=== PATIENT | male | born 1980 | race Caucasian/White ===

== ENCOUNTER 2017-01-02 20:09 | Emergency (ER) | payer MEDICARE, OTHER ==
[~2017-01-02] VITALS: Ht 170.2 cm; Wt 68.0 kg
[2017-01-02 20:30] VITALS: BP 117/80; PULSE 96; RESP 20; TEMP 98.6; O2SAT 96
[2017-01-02] MEDS ORDERED: TETANUS/DIPHTHERIA TOXOID ADULT 0.5 ML VIAL IM ONE (20:30)
--- NOTE | 2017-01-02 20:36 | PD ---
HPI Chief Complaint: psychiatric screening Time Seen by Provider: 20:17 Travel History International Travel<30 days: No Contact w/Intl Traveler<30days: No History of Present Illness HPI 36-year-old male presents to the emergency Department [place] local police for psychiatric evaluation. He patient states that people are after him and he just wants to . Repeats over and over again that he is not sure why he is here as we should just let him commit suicide. The patient reports smoking marijuana. He states he had 3 beers today. He does have strong smell of alcohol on his breath. Patient states that he does not want any of those psychotropics and states that he was on multiple medications in the past, but is not currently on them. Patient denies any attempt to hurt himself at this time. When asked if he has any suicidal or homicidal ideations, he states "I don't want to tell you because I don't want she locked me up". The patient did hit his head against the cage in the police car. He has abrasion to the occipital scalp. He states his tetanus immunization is not up-to-date. [facility] Social History Alcohol Use: Yes Tobacco Use: Yes Substance Use: Yes ( marijuana) Allergies-Medications (Allergen,Severity, Reaction): Coded Allergies: Penicillins (Verified Allergy, Unknown, 01/02/17) Reported Meds & Prescriptions Reported Meds & Active Scripts Active Reported Tramadol (Tramadol HCl) 50 Mg Tab 50 Mg PO Q6H PRN Trazodone (Trazodone HCl) 100 Mg Tablet 100 Mg PO HS Valium (Diazepam) 10 Mg Tab 10 Mg PO BID Review of Systems Except as stated in HPI: all other systems reviewed are Neg Physical Exam Narrative GENERAL: Well-nourished, well-developed male patient, afebrile. SKIN: Focused skin assessment warm/dry. Patient has abrasion to the occipital scalp. HEAD: Normocephalic. ENT: Mucosa pink and moist. No erythema or exudates. No uvular edema. No uvular , palatal, or tonsillar deviation. Airway patent. Nasal turbinates appear normal without nasal blood, purulent drainage or septal hematoma. Bilateral tympanic membranes are clear without erythema or perforation. EYES: No scleral icterus. No injection or drainage. NECK: Supple, trachea midline. No JVD or lymphadenopathy. CARDIOVASCULAR: Regular rate and rhythm without murmurs, gallops, or rubs. RESPIRATORY: Breath sounds equal bilaterally. No accessory muscle use. Lungs sounds are clear to auscultation. GASTROINTESTINAL: Abdomen soft, non-tender, nondistended. MUSCULOSKELETAL: No cyanosis, or edema. PSYCHIATRIC: Patient is delusional. He is pulling his hair and rocking back and forth crying. Data Data Last Documented VS Vital Signs Date Time Temp Pulse Resp B/P (MAP) Pulse Ox O2 Delivery O2 Flow Rate FiO2 01/02/17 20:30 98.6 96 20 117/80 (92) 96 Room Air Orders Orders Complete Blood Count With Diff (01/02/17 20:20) Comprehensive Metabolic Panel (01/02/17 20:20) Psych Screen (01/02/17 20:20) Drug Screen, Random Urine (01/02/17 20:20) Alcohol (Ethanol) (01/02/17 20:20) Ct Brain W/O Iv Contrast(Rout) (01/02/17 ) Tetanus/Diphtheria Tox Adult (Tetanus/Di (01/02/17 20:30) Haloperidol Inj (Haldol Inj) (01/02/17 20:45) Lorazepam Inj (Ativan Inj) (01/02/17 20:45) Ziprasidone Inj (Geodon Inj) (01/02/17 21:45) Restraints Violent (01/02/17 21:55) Labs Laboratory Tests Test 01/02/17 21:03 01/02/17 21:05 Urine Opiates Screen NEG Urine Barbiturates Screen NEG Urine Amphetamines Screen NEG Urine Benzodiazepines Screen POS Urine Cocaine Screen NEG Urine Cannabinoids Screen POS White Blood Count 6.7 TH/MM3 Red Blood Count 4.07 MIL/MM3 Hemoglobin 13.6 GM/DL Hematocrit 41.5 % Mean Corpuscular Volume 102.0 FL Mean Corpuscular Hemoglobin 33.5 PG Mean Corpuscular Hemoglobin Concent 32.9 % Red Cell Distribution Width 13.6 % Platelet Count 259 TH/MM3 Mean Platelet Volume 8.6 FL Neutrophils (%) (Auto) 54.3 % Lymphocytes (%) (Auto) 35.7 % Monocytes (%) (Auto) 5.4 % Eosinophils (%) (Auto) 4.1 % Basophils (%) (Auto) 0.5 % Neutrophils # (Auto) 3.6 TH/MM3 Lymphocytes # (Auto) 2.4 TH/MM3 Monocytes # (Auto) 0.4 TH/MM3 Eosinophils # (Auto) 0.3 TH/MM3 Basophils # (Auto) 0.0 TH/MM3 CBC Comment DIFF FINAL Differential Comment Blood Urea Nitrogen 8 MG/DL Creatinine 0.94 MG/DL Random Glucose 95 MG/DL Total Protein 7.6 GM/DL Albumin 3.9 GM/DL Calcium Level 8.3 MG/DL Alkaline Phosphatase 57 U/L Aspartate Amino Transf (AST/SGOT) 23 U/L Alanine Aminotransferase (ALT/SGPT) 27 U/L Total Bilirubin 0.3 MG/DL Sodium Level 139 MEQ/L Potassium Level 3.7 MEQ/L Chloride Level 108 MEQ/L Carbon Dioxide Level 22.0 MEQ/L Anion Gap 9 MEQ/L Estimat Glomerular Filtration Rate 91 ML/MIN Ethyl Alcohol Level 198 MG/DL [facility] Medical Decision Making Medical Screen Exam Complete: Yes Emergency Medical Condition: Yes Medical Record Reviewed: Yes Interpretation(s) Last Impressions Head CT 01/02/17 0000 Signed Impressions: Service Date/Time: December 20:39 - CONCLUSION: No acute intracranial abnormality is identified. Rodney Cole MD Differential Diagnosis Schizophrenia versus bipolar disorder versus anxiety versus depression Narrative Course 36-year-old male presents to the emergency Department [place] act [place] local police for suicidal ideation. CBC, CMP, alcohol level, urine drug screen are ordered and pending. Tetanus immunization is up-to-date. CT of the brain is ordered and pending. Patient is not following listening is becoming and harm to himself. Patient is given Haldol 5 mg IM, Ativan 1 mg IM. Patient continues to be aggressive and threatening staff. He has become a harm to himself and others. Patient is placed in restraints. He was given Geodon 10 mg IM. CBC shows no acute abnormality. CMP shows no acute abnormality. Alcohol level is 198. UDS is positive for benzodiazepines and cannabinoids. CT of the brain shows no acute abnormality Patient is medically cleared for psychiatric screening and disposition. Mental health screening discussed with the patient. Psychiatric screen ordered. Diagnosis Primary Impression: Medical clearance for psychiatric admission Additional Instructions: Patient is medically cleared for psychiatric screening and disposition Condition: Stable MarloBreonna Jan 02, 2017 20:36
[2017-01-02] MEDS ORDERED: LORazepam 2 MG/ML VIAL IM ONE (20:45)
[2017-01-02] MEDS ORDERED: HALOPERIDOL LACTATE 5 MG/ML AMP IM ONE (20:45)
[2017-01-02] MEDS ORDERED: DIAZ10 PO (20:53)
[2017-01-02] MEDS ORDERED: TRAZ100T6 PO (20:53)
[2017-01-02] MEDS ORDERED: TRAM50TA PO (20:53)
--- NOTE | 2017-01-02 21:17 | RADRPT ---
EXAM DATE/TIME: 01/02/2017 20:39 [place] COMPARISON: No previous studies available for comparison. INDICATIONS : Altered mental status. RADIATION DOSE: 56.35 CTDIvol (mGy) MEDICAL HISTORY : None SURGICAL HISTORY : None. ENCOUNTER: Initial ACUITY: 1 day PAIN SCALE: Non-responsive LOCATION: cranial TECHNIQUE: Multiple contiguous axial images were obtained of the head. Using automated exposure control and adj ustment of the mA and/or kV according to patient size, radiation dose was kept as low as reasonably a chievable to obtain optimal diagnostic quality images. DICOM format image data is available electro nically for review and comparison. FINDINGS: CEREBRUM: The ventricles are normal. No evidence of midline shift, mass lesion, hemorrhage or acute infarction . No extra-axial fluid collections are seen. POSTERIOR FOSSA: The cerebellum and brainstem are intact. The 4th ventricle is midline. The cerebellopontine angle i s unremarkable. EXTRACRANIAL: Visualized sinuses are clear. 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 SKULL: The calvaria is intact. No evidence of skull fracture. CONCLUSION: No acute intracranial abnormality is identified. Rodney Cole MD on January 02, 2017 at 21:14 Board Certified Radiologist. This report was verified electronically.
[2017-01-02 21:28] LABS: AUTOMATED NEUTROPHIL # 3.6 TH/MM3 (1.8-7.7); BASOPHIL % 0.5 % (0.0-2.0); EOSINOPHIL # 0.3 TH/MM3 (0-0.4); EOSINOPHIL % 4.1 % (0.0-4.0); HEMATOCRIT 41.5 % (39.0-51.0); HEMO FLAGS DIFF FINAL; LYMPH % 35.7 % (9.0-44.0); LYMPHOCYTE # 2.4 TH/MM3 (1.0-4.8); MEAN CORPUSCULAR HEMOGLOBIN 33.5 PG (27.0-34.0); MEAN CORPUSCULAR HGB CONC 32.9 % (32.0-36.0); MONO % 5.4 % (0.0-8.0); NEUT % 54.3 % (16.0-70.0); PLATELET COUNT 259 TH/MM3 (150-450); RED BLOOD COUNT 4.07 MIL/MM3 (4.50-5.90); RED CELL DISTRIBUTION WIDTH 13.6 % (11.6-17.2); WHITE BLOOD COUNT 6.7 TH/MM3 (4.0-11.0)
[2017-01-02] MEDS ORDERED: ZIPRASIDONE MESYLATE 20 MG VIAL IM ONE (21:45)
[2017-01-02 21:47] LABS: ANION GAP 9 MEQ/L (5-15); AST (GOT) 23 U/L (15-37); BLOOD UREA NITROGEN 8 MG/DL (7-18); CHLORIDE 108 MEQ/L (98-107); GLOMERULAR FILTRATION RATE 91 ML/MIN (>89); POTASSIUM 3.7 MEQ/L (3.5-5.1); SODIUM (NA) 139 MEQ/L (136-145)
[2017-01-02 21:51] LABS: ALKALINE PHOSPHATASE 57 U/L (45-117); ALT (GPT) 27 U/L (12-78); TOTAL BILIRUBIN ADULT 0.3 MG/DL (0.2-1.0)
[2017-01-02 21:59] LABS: ALCOHOL 198 MG/DL (0-5)
[2017-01-03 00:18] VITALS: BP 122/69; PULSE 87; RESP 14; TEMP 98; O2SAT 98
[2017-01-03 02:46] VITALS: BP 120/65; PULSE 74; RESP 18; O2SAT 98
[2017-01-03 06:40] VITALS: BP 113/59; PULSE 79; RESP 17; O2SAT 96
[2017-01-03 12:23] VITALS: BP 121/78; PULSE 72; RESP 16; O2SAT 98
--- NOTE | 2017-01-03 16:22 | PD ---
History of Present Illness Chief Complaint: Psychiatric Symptoms Time Seen by Provider: 16:00 Travel History International Travel<30 Days: No Contact w/Intl Traveler<30days: No Known affected area: No Legal Status Legal Status[place] Signed By: Mony Beltran History of Present Illness: History of Present Illness HPI 36-year-old male with history of anxiety and depression presents to the emergency Department under [place] act by local police for psychiatric evaluation. The BA alleges that he states that people are after him and he just wants to . He was agitated during transport to [facility] hitting his head on the cage. The patient was intoxicated at the time and upon arrival to [facility] his BAL was 198. Positive toxicology for cannabinoids and benzos. Patient was monitored in [place] and he did not present any agitation or suicidality. He is alert and calm male who is dressed in [facility]. he is maintaining basic hygiene. His speech is clear and logical and he is currently clinically sober. He does not endorse any psychotic symptomatology. No evidence of derek . Denies suicdal or homicidal ideation. He reports that he was involved in an argument with neighbors who have been antagonizing him since they moved in. PFSH Past Medical History Bipolar Disorder: Yes Anxiety: Yes Depression: Yes Diminished Hearing: No Psychiatric: Yes Tetanus Vaccination: Unknown Influenza Vaccination: No Psychiatric History Psychiatric History Hx Psychiatric Treatment: Pt denied any real psych hx- Admits to hx of Anxiety and depression being tretaed by PCP He reports one previous BA while living in [place]. History of Inpatient Treatment: No Guns or firearms in home: No Social History Single male. Lives by himself. Is on disability. Hx Alcohol Use: Yes Hx Tobacco Use: Yes Hx Substance Use: Yes Substance Use Type: Alcohol (deneis daily use), Marijuana, Benzos (Valium,Xanax ) Hx of Substance Use Treatment: No Family Psychiatric History negative Allergies-Medications (Allergen,Severity, Reaction): Coded Allergies: Penicillins (Verified Allergy, Unknown, 01/02/17) Reported Meds & Prescriptions Reported Meds & Active Scripts Active Reported Tramadol (Tramadol HCl) 50 Mg Tab 50 Mg PO Q6H PRN Trazodone (Trazodone HCl) 100 Mg Tablet 100 Mg PO HS Valium (Diazepam) 10 Mg Tab 10 Mg PO BID Review of Systems Except as stated in HPI: all other systems reviewed are Neg Exam Alert: Yes [place]: Person (ox4) Mood: Anxious Affect: Appropriate Speech: Clear, Logical Eye Contact: Normal Delusions: No Suicidal: Ideation (denies any) Homicidal: Ideation (deneis any) Insight/Judgement Fair. Not impaired. MDM Medical Decision Making Medical Record Reviewed: Yes Assessment/Plan 36-year-old male with history of anxiety and depression presents to the emergency Department under [employer] act by local police for psychiatric evaluation. patient has been monitored here in [place]. he has been calm. No suicidality. No psychosis. Patient is requesting to be discharged as he has to go to care for his animal. He does not meet [employer] criteria. Contracts for safety as part of a general safety plan. He is cognitively intact Lift and follow up with outpatient psychiatric provider. Cleared from psychiatry for discharge. Orders Orders Complete Blood Count With Diff (01/02/17 20:20) Comprehensive Metabolic Panel (01/02/17 20:20) Psych Screen (01/02/17 20:20) Drug Screen, Random Urine (01/02/17 20:20) Alcohol (Ethanol) (01/02/17 20:20) Ct Brain W/O Iv Contrast(Rout) (01/02/17 ) Tetanus/Diphtheria Tox Adult (Tetanus/Di (01/02/17 20:30) Haloperidol Inj (Haldol Inj) (01/02/17 20:45) Lorazepam Inj (Ativan Inj) (01/02/17 20:45) Ziprasidone Inj (Geodon Inj) (01/02/17 21:45) Restraints Violent (01/02/17 21:55) Diet Regular Basic (01/03/17 Breakfast) Diet Regular Basic (01/03/17 Dinner) Results Vital Signs Date Time Temp Pulse Resp B/P (MAP) Pulse Ox O2 Delivery O2 Flow Rate FiO2 01/03/17 12:23 72 16 121/78 (92) 98 01/03/17 06:40 79 17 113/59 (77) 96 01/03/17 02:46 74 18 120/65 (83) 98 Room Air 01/03/17 00:18 98.0 87 14 122/69 (86) 98 Room Air 01/02/17 20:30 98.6 96 20 117/80 (92) 96 Room Air Laboratory Tests Test 01/02/17 21:03 01/02/17 21:05 Urine Opiates Screen NEG Urine Barbiturates Screen NEG Urine Amphetamines Screen NEG Urine Benzodiazepines Screen POS Urine Cocaine Screen NEG Urine Cannabinoids Screen POS White Blood Count 6.7 Red Blood Count 4.07 Hemoglobin 13.6 Hematocrit 41.5 Mean Corpuscular Volume 102.0 Mean Corpuscular Hemoglobin 33.5 Mean Corpuscular Hemoglobin Concent 32.9 Red Cell Distribution Width 13.6 Platelet Count 259 Mean Platelet Volume 8.6 Neutrophils (%) (Auto) 54.3 Lymphocytes (%) (Auto) 35.7 Monocytes (%) (Auto) 5.4 Eosinophils (%) (Auto) 4.1 Basophils (%) (Auto) 0.5 Neutrophils # (Auto) 3.6 Lymphocytes # (Auto) 2.4 Monocytes # (Auto) 0.4 Eosinophils # (Auto) 0.3 Basophils # (Auto) 0.0 CBC Comment DIFF FINAL Differential Comment Blood Urea Nitrogen 8 Creatinine 0.94 Random Glucose 95 Total Protein 7.6 Albumin 3.9 Calcium Level 8.3 Alkaline Phosphatase 57 Aspartate Amino Transf (AST/SGOT) 23 Alanine Aminotransferase (ALT/SGPT) 27 Total Bilirubin 0.3 Sodium Level 139 Potassium Level 3.7 Chloride Level 108 Carbon Dioxide Level 22.0 Anion Gap 9 Estimat Glomerular Filtration Rate 91 Ethyl Alcohol Level 198 Diagnosis Primary Impression: Adjustment disorder Additional Impressions: Substance induced mood disorder Alcohol intoxication Psychiatrically Cleared: Yes Additional Instructions: Patient is medically cleared for psychiatric screening and disposition Med/ Other Pt Specific Info: No Change to Meds Disposition: 01 DISCHARGE HOME Condition: Stable Problem Qualifiers Primary Impression: Adjustment disorder Qualified Codes: F43.22 - Adjustment disorder with anxiety Additional Impressions: Alcohol intoxication Qualified Codes: F10.920 - Alcohol use, unspecified with intoxication, uncomplicated Cecily Welch Jan 03, 2017 16:22
--- NOTE | 2017-01-03 17:08 | PD ---
Physical Exam Date Seen by Provider: Jan 03, 2017 Time Seen by Provider: 17:05 Narrative 36 yr old male here under [place]. Please refer to previous provider's note for H&P. I have discussed the case with Cecily CHAVEZ. She has lifted the [place]. I discussed with patient. He tells me he is not suicidal homicidal. He tells me he was intoxicated and made foolish statements. He tells me that he has pets at home that he need needs to care for. Data Data Last Documented VS Vital Signs Date Time Temp Pulse Resp B/P (MAP) Pulse Ox O2 Delivery O2 Flow Rate FiO2 01/03/17 12:23 72 16 121/78 (92) 98 01/03/17 02:46 Room Air 01/03/17 00:18 98.0 Orders Orders Complete Blood Count With Diff (01/02/17 20:20) Comprehensive Metabolic Panel (01/02/17 20:20) Psych Screen (01/02/17 20:20) Drug Screen, Random Urine (01/02/17 20:20) Alcohol (Ethanol) (01/02/17 20:20) Ct Brain W/O Iv Contrast(Rout) (01/02/17 ) Tetanus/Diphtheria Tox Adult (Tetanus/Di (01/02/17 20:30) Haloperidol Inj (Haldol Inj) (01/02/17 20:45) Lorazepam Inj (Ativan Inj) (01/02/17 20:45) Ziprasidone Inj (Geodon Inj) (01/02/17 21:45) Restraints Violent (01/02/17 21:55) Diet Regular Basic (01/03/17 Breakfast) Diet Regular Basic (01/03/17 Dinner) Labs Laboratory Tests Test 01/02/17 21:03 01/02/17 21:05 Urine Opiates Screen NEG Urine Barbiturates Screen NEG Urine Amphetamines Screen NEG Urine Benzodiazepines Screen POS Urine Cocaine Screen NEG Urine Cannabinoids Screen POS White Blood Count 6.7 TH/MM3 Red Blood Count 4.07 MIL/MM3 Hemoglobin 13.6 GM/DL Hematocrit 41.5 % Mean Corpuscular Volume 102.0 FL Mean Corpuscular Hemoglobin 33.5 PG Mean Corpuscular Hemoglobin Concent 32.9 % Red Cell Distribution Width 13.6 % Platelet Count 259 TH/MM3 Mean Platelet Volume 8.6 FL Neutrophils (%) (Auto) 54.3 % Lymphocytes (%) (Auto) 35.7 % Monocytes (%) (Auto) 5.4 % Eosinophils (%) (Auto) 4.1 % Basophils (%) (Auto) 0.5 % Neutrophils # (Auto) 3.6 TH/MM3 Lymphocytes # (Auto) 2.4 TH/MM3 Monocytes # (Auto) 0.4 TH/MM3 Eosinophils # (Auto) 0.3 TH/MM3 Basophils # (Auto) 0.0 TH/MM3 CBC Comment DIFF FINAL Differential Comment Blood Urea Nitrogen 8 MG/DL Creatinine 0.94 MG/DL Random Glucose 95 MG/DL Total Protein 7.6 GM/DL Albumin 3.9 GM/DL Calcium Level 8.3 MG/DL Alkaline Phosphatase 57 U/L Aspartate Amino Transf (AST/SGOT) 23 U/L Alanine Aminotransferase (ALT/SGPT) 27 U/L Total Bilirubin 0.3 MG/DL Sodium Level 139 MEQ/L Potassium Level 3.7 MEQ/L Chloride Level 108 MEQ/L Carbon Dioxide Level 22.0 MEQ/L Anion Gap 9 MEQ/L Estimat Glomerular Filtration Rate 91 ML/MIN Ethyl Alcohol Level 198 MG/DL [facility] Medical Record Reviewed: Yes Supervised Visit with ANÍBAL: No Narrative Course Patient's [place] by Cecily Welch psychiatric nurse practitioner. I discussed the case with her. Patient tells me that he has no suicidal or homicidal ideation. Patient cleared for discharge. I recommend follow-up with his primary care provider, who happens to treat him for his psychiatric issues as well. Diagnosis Primary Impression: Adjustment disorder Qualified Codes: F43.22 - Adjustment disorder with anxiety Additional Impressions: Alcohol intoxication Qualified Codes: F10.920 - Alcohol use, unspecified with intoxication, uncomplicated Substance induced mood disorder Additional Instruction: Follow-up with your provider Dr. Prater Disposition: 01 DISCHARGE HOME Condition: Stable Xiomara Swanson Jan 03, 2017 17:08
== END 2017-01-03 18:30 | disposition home or self-care (01) ==
LOC: NEPD 20:09 → NEPJ 01-03 18:30
DX: F43.22 Adjustment disorder with anxiety (principal); F10.920 Alcohol use, unspecified with intoxication, uncomplicated; F17.290 Nicotine dependence, other tobacco product, uncomplicated; F12.10 Cannabis abuse, uncomplicated
CPT/HCPCS: 70450; 80053; 80307; 85025; 90471; 90714; 96372; 99285; J1630; J2060; J3486